=== PATIENT | female | born 1950 | race Two or more races ===

== ENCOUNTER 2017-06-28 11:37 | Day surgery (SDC) | payer OTHER, MEDICARE ==
[2017-06-28] MEDS ORDERED: MIDAZOLAM 1 MG/ML 2 ML INJ (13:47)
[2017-06-28] MEDS ORDERED: FENTAnyl 50 MCG/ML VIAL (13:47)
== END 2017-06-28 15:49 | disposition home or self-care (01) ==
LOC: GIL 11:37
DX: Z12.11 Encounter for screening for malignant neoplasm of colon (principal); D12.5 Benign neoplasm of sigmoid colon; K57.90 Diverticulosis of intestine, part unspecified, without perforation or abscess without bleeding; K64.8 Other hemorrhoids
CPT/HCPCS: 45380; 88305